=== PATIENT | male | born 1960 | race Caucasian/White ===

== ENCOUNTER 2022-05-15 15:59 | Inpatient (IN) | payer MEDICAID, MEDICARE ==
[~2022-05-15] VITALS: Ht 167.6 cm; Wt 102.1 kg
[2022-05-15] MEDS: NACL 0.9% 1,000 ML IV SCH ×2 (07:00→20:33)
[~2022-05-15 15:59] MED LIST: LANTUS SUBQ; LISI-487 PO
[2022-05-15 16:09] VITALS: BP 134/84
--- NOTE | 2022-05-15 16:09 | NUR ---
62 y/o male biba, homeless, pt was found on street corner with c/o gen weakness, high glucose, non productive cough and full body pain for 3 days. amr on scene started iv 16g on left arm with 1L of fluids for their accucheck reading higher than 600+. pt accucheck in triage was HIGH, ermd made aware. pmh: dm2 allergy: codeine med: non compliant
[2022-05-15] MEDS ORDERED: NACL 0.9% 2,000 ML IV ONE (16:20)
[2022-05-15 16:40] LABS: BASOPHILS # (AUTO) 0.1 K/uL (0.00-0.22); BASOPHILS % (AUTO) 0.6 % (0.0-2.0); EOSINOPHILS % (AUTO) 0.2 % (0.0-4.0); HEMATOCRIT 44.6 % (36-52); HEMOGLOBIN 14.8 g/dL (12.0-18.0); LYMPHOCYTES # (AUTO) 1.3 K/uL (2.0-11.5); LYMPHOCYTES % (AUTO) 11.9 % (20.5-51.1); MEAN CORPUSCULAR HEMOGLOBIN 29 pg (27-31); MEAN CORPUSCULAR HGB CONC 33 g/dL (33-37); MEAN CORPUSCULAR VOLUME 88.8 fL (80-94); MONOCYTES # (AUTO) 0.9 K/uL (0.8-1.0); MONOCYTES % (AUTO) 8.4 % (1.7-9.3); NEUTROPHILS # (AUTO) 8.8 K/uL (1.8-7.7); NEUTROPHILS % (AUTO) 78.9 % (42.2-75.2); PLATELET COUNT (AUTO) 169 K/uL (140-450); RED BLOOD CELL COUNT(AUTO) 5.03 MIL/uL (4.20-6.10); RED CELL DISTRIBUTION WIDTH 13.7 % (11.6-13.7); WHITE BLOOD COUNT (AUTO) 11.1 K/uL (4.8-10.8)
[2022-05-15 16:56] LABS: ALBUMIN 3.3 g/dL (3.4-5.0); ANION GAP 16.4 (8-16); ASPARTATE AMINOTRANSFERASE 20 U/L (15-37); CARBON DIOXIDE 21.6 mmol/L (21-32); CHLORIDE 97 mmol/L (98-107); CREATININE 2.1 mg/dL (0.6-1.3); GFR ARICAN-AMERICAN 41 mL/min (>90); SODIUM SERUM 131 mmol/L (136-145); TOTAL BILIRUBIN 0.8 mg/dL (0.0-1.0); UREA NITROGEN, BLOOD 23 mg/dL (7-18)
[2022-05-15 16:58] LABS: GLUCOSE 671 mg/dL (74-106)
[2022-05-15] MEDS ORDERED: POTASSIUM CHLORIDE 10 MEQ TABER PO ONE (17:10)
[2022-05-15] MEDS ORDERED: INSULIN REGULAR, HUMAN 100 UNIT in NACL 0.9% 100 ML IV ONE ×2 (17:10)
--- NOTE | 2022-05-15 19:30 | NUR ---
RECEIVED AWAKE AND MOANING WITH C/O CRAMP IN LEFT CALF. INSULIN GTT AT 9U/HR
--- NOTE | 2022-05-15 20:29 | NUR ---
ES SWAB OBTAINED AND TAKEN TO LAB
[2022-05-15] MEDS ORDERED: DOCUSATE SODIUM 100 MG GELCAP PO PRN (21:45)
[2022-05-15] MEDS ORDERED: INSULIN REGULAR, HUMAN 100 UNIT/ML VIAL IVP SCH (21:45)
[2022-05-15] MEDS ORDERED: guaiFENesin DM 200/20 MG-10 ML 10 ML UDC PO PRN (21:45)
[2022-05-15] MEDS ORDERED: ONDANSETRON 4 MG/2 ML VIAL IM/IVP PRN (21:45)
[2022-05-15] MEDS ORDERED: DEXTROSE 50% 50 ML SYR IVP PRN (21:45)
[2022-05-15] MEDS ORDERED: HYDROcodone/APAP 7.5/325 MG 1 TAB PO PRN (21:45)
[2022-05-15] MEDS ORDERED: ZOLPIDEM 5 MG TAB PO PRN (21:45)
[2022-05-15] MEDS ORDERED: ACETAMINOPHEN 325 MG TAB PO PRN (21:45)
[2022-05-15] MEDS ORDERED: BLOOD GLUCOSE MONITORING 1 DEV DEV FS SCH (21:45)
[2022-05-15] MEDS ORDERED: POTASSIUM CHLORIDE 40 MEQ, LIDOCAINE MPF 1% 25 MG in NACL 0.9% 250 ML IV PRN ×6 (21:45)
[2022-05-15] MEDS ORDERED: POTASSIUM CHLORIDE 10 MEQ TABER PO PRN (21:45)
[2022-05-15 22:00] VITALS: BP 128/73
--- NOTE | 2022-05-15 22:00 | NUR ---
RECEIVED PT. FROM ER AND REPORT GIVEN BY [facility] TAYLOR. PT. AWAKE, ALERT AND ORIENTED. ON NASAL CANULA AT 2L AND O2 SAT 97%. IV SITE 18G, INFUSING INSULIN DRIP 9 UNITS/HR. PER PROTOCOL I CHANGED THE INSULIN DRIP TO 0.1 U/KG/HR. DID INITIAL ASSESSMENT. SINUS RHYTHM ON MONITOR. BLOOD SUGAR CHECK EVERY HOUR. EYES PERRLA. LUNG SOUNDS CLEAR. ABDOMEN SOFT AND NON TENDER. PT. NPO EXCEPT MEDS. PT. ASKED FOR FOOD AND WHEN EXPLAINED THAT HE CAN'T HAVE ANY FOOD BY MOUTH AT THIS TIME, HE UNDERSTOOD. HE REPOSITIONED HIMSELF TO THE BED. BEDLOCK AND PLACED IN THE LOWEST HEIGHT. PT. DENIES ANY PAIN. WILL CONT. TO MONITOR.
--- NOTE | 2022-05-15 22:00 | NUR ---
TO ICU 3, BEDSIDE REPORT GIVEN
[2022-05-15 22:33] LABS: CHOL/HDL RATIO 3.7 (1-4.5); FREE T4 (FREE THYROXINE) 1.21 ng/dL (0.76-1.46); MAGNESIUM 1.9 mg/dL (1.8-2.4); PHOSPHORUS 4.4 mg/dL (2.5-4.9); THYROID STIMULATING HORMONE 0.37 uIU/mL (0.34-3.74)
[2022-05-15] MEDS: DEXT 5% / NACL 0.45% 1,000 ML IV SCH (22:40)
[2022-05-15] MEDS: BLOOD GLUCOSE MONITORING 1 DEV DEV FS SCH (23:17)
[2022-05-15 23:29] LABS: PROTHROMBIN TIME 10.3 secs (10.8-13.4)
[2022-05-15] MEDS: INSULIN REGULAR, HUMAN 100 UNIT in NACL 0.9% 100 ML IV SCH ×2 (23:31)
[2022-05-16] VITALS (11 sets, daily range): BP systolic 100–140; BP diastolic 45–115
--- NOTE | 2022-05-16 00:14 | NUR ---
LAB AT THE BEDSIDE FOR BMP, MG AND PHOS.
[2022-05-16] MEDS: BLOOD GLUCOSE MONITORING 1 DEV DEV FS SCH ×12 (00:29→21:38)
[2022-05-16] MEDS: INSULIN REGULAR, HUMAN 100 UNIT in NACL 0.9% 100 ML IV SCH ×14 (00:31→06:23)
[2022-05-16 00:35] LABS: ANION GAP 11.1 (8-16); CARBON DIOXIDE 27.8 mmol/L (21-32); CREATININE 1.3 mg/dL (0.6-1.3); POTASSIUM 3.9 mmol/L (3.5-5.1)
[2022-05-16 00:40] LABS: MAGNESIUM 1.9 mg/dL (1.8-2.4); PHOSPHORUS 3.3 mg/dL (2.5-4.9)
[2022-05-16] MEDS ORDERED: KCL 20 MEQ/WATER INJ PREMIX 200 ML IV PRN (01:40)
[2022-05-16] MEDS: DEXT 5% / NACL 0.45% 1,000 ML IV SCH (03:27)
[2022-05-16 04:35] LABS: ANION GAP 11.6 (8-16); CARBON DIOXIDE 25.8 mmol/L (21-32); CREATININE 1.3 mg/dL (0.6-1.3); POTASSIUM 3.4 mmol/L (3.5-5.1)
[2022-05-16 04:38] LABS: MAGNESIUM 1.7 mg/dL (1.8-2.4); PHOSPHORUS 3.5 mg/dL (2.5-4.9)
--- NOTE | 2022-05-16 05:39 | NUR ---
TEXT DR. PITTS TO REPORT ANION GAP, CONSECUTIVE RESULT 11.1 AND 11.6. MG 1.7 AND PHOS 3.5. LATEST BLOOD SUGAR RESULT 105. PT. IS ON INSULIN DRIP 0.05 U/KG/HR AND D5 1/2NS AT 250 ML/HR. WILL WAIT FOR HIS CALL.
--- NOTE | 2022-05-16 07:00 | NUR ---
STILL AWAITING RESPONSE OR RETURNED CALL FROM DR. PITTS. LATEST BLOOD SUGAR IS 138.
--- NOTE | 2022-05-16 07:10 | NUR ---
ENDORSED TO AM SHIFT CLEVELAND RIVERA FOR CONTINUITY OF CARE.
--- NOTE | 2022-05-16 07:34 | NUR ---
RECEIVED REPORT FROM BUSINESS SUPPORT ASSISTANT RN HARSH.
--- NOTE | 2022-05-16 08:15 | NUR ---
DR RAMIRO BRYANT AT BEDSIDE. ORDERED TO DC INSULIN DRIP, 20U LANTUS NOW, CHANGE ACCUCHECK TO ACHS WITH SLIDING SCALE, AND DC FLUIDS. RECEIVED TELE TRANSFER ORDERS.
[2022-05-16] MEDS: PANTOPRAZOLE 40 MG TABEC PO SCH (08:25)
[2022-05-16 08:35] LABS: BASOPHILS % (AUTO) 0.5 % (0.0-2.0); EOSINOPHILS # (AUTO) 0.1 K/uL (0-0.4); EOSINOPHILS % (AUTO) 1.6 % (0.0-4.0); HEMATOCRIT 41.4 % (36-52); HEMOGLOBIN 13.6 g/dL (12.0-18.0); LYMPHOCYTES # (AUTO) 1.8 K/uL (2.0-11.5); LYMPHOCYTES % (AUTO) 21.5 % (20.5-51.1); MEAN CORPUSCULAR HEMOGLOBIN 29 pg (27-31); MEAN CORPUSCULAR HGB CONC 33 g/dL (33-37); MEAN CORPUSCULAR VOLUME 88.8 fL (80-94); MONOCYTES # (AUTO) 0.6 K/uL (0.8-1.0); MONOCYTES % (AUTO) 6.6 % (1.7-9.3); NEUTROPHILS # (AUTO) 5.9 K/uL (1.8-7.7); NEUTROPHILS % (AUTO) 69.8 % (42.2-75.2); PLATELET COUNT (AUTO) 145 K/uL (140-450); RED BLOOD CELL COUNT(AUTO) 4.66 MIL/uL (4.20-6.10); RED CELL DISTRIBUTION WIDTH 13.9 % (11.6-13.7); WHITE BLOOD COUNT (AUTO) 8.5 K/uL (4.8-10.8)
[2022-05-16 08:45] LABS: MAGNESIUM 1.8 mg/dL (1.8-2.4); PHOSPHORUS 2.9 mg/dL (2.5-4.9)
[2022-05-16] MEDS ORDERED: DEXTROSE 50% 50 ML SYR IVP PRN (08:45)
[2022-05-16] MEDS ORDERED: INSULIN LANTUS 100 UNITS/ML 10 ML VIAL SUBQ SCH ×2 (09:00→21:00)
[2022-05-16] MEDS ORDERED: lisinopriL 20 MG TAB PO SCH (09:00)
[2022-05-16 09:04] LABS: ANION GAP 14.1 (8-16); CARBON DIOXIDE 23.7 mmol/L (21-32); CREATININE 1.5 mg/dL (0.6-1.3); POTASSIUM 3.8 mmol/L (3.5-5.1)
--- NOTE | 2022-05-16 09:15 | NUR ---
PATIENT HAS BEEN SCREENED AND CATEGORIZED HIGH NUTRITION RISK. PATIENT WILL BE SEEN WITHIN 1-[address] OF [address]ION. [address]
--- NOTE | 2022-05-16 09:29 | NUR ---
PATIENT A&O X4 AND ABLE TO MAKE NEEDS KNOWN. LUNGS CLEAR TO AUSCULTATION. 02 2L VIA NASAL CANULA. ACTIVE BOWEL SOUNDS, ON CCHO DIET.PATIENT IS CONTINENT BOWEL AND BLADDER. 1 MEDIUM BM SO FAR THIS SHIFT. PATIENT ON SINUS RHYTHM. [address] RUBIO HAS DISCONTINUED DRIPS AND FLUIDS. SKIN IS INTACT. PRN K DUR GIVEN FOR POTASSIUM LEVEL AT 3.4.
--- NOTE | 2022-05-16 11:33 | NUR ---
DC PLANN[age] YRS OLD MALE PATIENT WAS ADMITTED FROM HOME WITH A DX OF DKA. PATIENT HAS A HX OF HTN, CVA AND DM. BLOOD GLUCOSE LEVEL ON ADMISSION 643, AG 16.4 CXR SHOWED LOW LUNG VOLUME. RAPID COVID TEST NEGATIVE. ADMITTED IN ICU FOR INSULIN DRIP. CONSULTED WITH PULMO AND NEPHRO. DC PLAN TO GO HOME WHEN STABLE. CM TO FOLLOW.
[2022-05-16] MEDS: INSULIN LISPRO SLIDING SCALE 100 UNITS/ML VIAL SUBQ PRN ×3 (11:47→21:34)
--- NOTE | 2022-05-16 12:12 | NUR ---
DR. HORN AT BEDSIDE. MD IS OK FOR PATIENT TO TRANSFER TO TELE.
--- NOTE | 2022-05-16 13:00 | NUR ---
SEEN AND EXAMINED BY DR. PAYNE. ORDERS TO BLADDER SCAN AND INSERT RIOS CATHETER IF RESIDUAL IS >200ML.
[2022-05-16 13:13] LABS: ANION GAP 10.4 (8-16); CARBON DIOXIDE 26.7 mmol/L (21-32); POTASSIUM 4.1 mmol/L (3.5-5.1)
[2022-05-16 13:20] LABS: APPEARANCE,URINE CLEAR (CLEAR); BILIRUBIN,URINE NEGATIVE (NEGATIVE); BLOOD, URINE TRACE-I (NEGATIVE); COLOR,URINE YELLOW (YELLOW); LEUKOCYTE ESTERASE ,URINE NEGATIVE (NEGATIVE); NITRITE, URINE NEGATIVE (NEGATIVE); UGLUCOSE 2+ (NEGATIVE)
--- NOTE | 2022-05-16 13:20 | NUR ---
BLADDER SCAN SHOWED RESIDUAL OF 182 ML. NO INDICATION FOR RIOS INSERTION.
[2022-05-16 13:35] LABS: BARBITURATE, URINE NEGATIVE ng/ml (NEG <=200); BENZODIAZEPINE, URINE NEGATIVE ng/mL (NEG <=200); CANNABINOID, URINE NEGATIVE ng/mL (NEG <=50); COCAINE, URINE NEGATIVE ng/mL (NEG <=300); OPIATE, URINE NEGATIVE ng/mL (NEG <=2000); PHENCYCLIDINE SCREEN,URINE NEGATIVE ng/mL (NEG <=25)
[2022-05-16 13:37] LABS: WBC,URINE 0-5 /HPF (0-5)
[2022-05-16 14:13] LABS: MAGNESIUM 1.6 mg/dL (1.8-2.4); PHOSPHORUS 2.6 mg/dL (2.5-4.9)
--- NOTE | 2022-05-16 14:30 | NUR ---
CHANGED LINENS AND GOWN. PATIENT RESTING COMFORTABLY IN BED. RESPIRATIONS EVEN AND UNLABORED.
[2022-05-16 16:26] LABS: CARBON DIOXIDE 23.5 mmol/L (21-32); CREATININE 1.4 mg/dL (0.6-1.3); POTASSIUM 4.5 mmol/L (3.5-5.1)
--- NOTE | 2022-05-16 16:30 | NUR ---
PT USING URINAL INDEPENDENTLY. 200ML URINE OUTPUT.
[2022-05-16 16:31] LABS: MAGNESIUM 1.6 mg/dL (1.8-2.4); PHOSPHORUS 2.6 mg/dL (2.5-4.9)
--- NOTE | 2022-05-16 19:10 | NUR ---
ENDORSED REPORT TO PHOEBE GUTHRIE FOR CONTINUITY OF CARE.
--- NOTE | 2022-05-16 19:20 | NUR ---
TRANSFERRED TO TELE ROOM 124A.
--- NOTE | 2022-05-16 19:30 | NUR ---
PT ADMITTED TO [facility] FROM ICU. PT IS AOX4, AMBULATORY, ABLE TO VERBALIZE NEEDS AND FOLLOW COMMANDS. PT IS ON ROOM AIR AND ON CCHO DIET. PT HAS SALINE LOCKED ON LEFT AC GAUGE 18. PT WAS ORIENTED TO ROOM/BED BUTTON AND CALL LIGHT. ALL SAFETY MEASURES IMPLEMENTED. BED WHEELS ON LOCKED, BED IN LOW POSITION AND IN ALARM. CALL LIGHT WITHIN REACH.
[2022-05-16 20:28] LABS: ANION GAP 11.2 (8-16); CARBON DIOXIDE 26.2 mmol/L (21-32); CREATININE 1.3 mg/dL (0.6-1.3); POTASSIUM 4.4 mmol/L (3.5-5.1)
[2022-05-16 20:33] LABS: MAGNESIUM 1.8 mg/dL (1.8-2.4); PHOSPHORUS 3.5 mg/dL (2.5-4.9)
--- NOTE | 2022-05-16 21:38 | NUR ---
SCHEDULED PRESCRIBED MEDICATION WAS GIVEN TO PT PER MD ORDER. PT TOLERATED IT WELL. ALL SAFETY MEASURES IMPLEMENTED. BED WHEELS ON LOCKED, BED IN LOW POSITION AND IN ALARM. CALL LIGHT WITHIN REACH.
--- NOTE | 2022-05-16 23:30 | NUR ---
PT WAS GIVEN CRACKERS PER PT REQUEST. ALL SAFETY MEASURES IMPLEMENTED. BED WHEELS ON LOCKED, BED IN LOW POSITION AND IN ALARM. CALL LIGHT WITHIN REACH.
[2022-05-17] VITALS: BP 109/66
[2022-05-17 00:44] LABS: ANION GAP 10.8 (8-16); CARBON DIOXIDE 25.5 mmol/L (21-32); CREATININE 1.3 mg/dL (0.6-1.3); POTASSIUM 4.3 mmol/L (3.5-5.1)
[2022-05-17 00:48] LABS: MAGNESIUM 1.8 mg/dL (1.8-2.4); PHOSPHORUS 2.9 mg/dL (2.5-4.9)
--- NOTE | 2022-05-17 01:00 | NUR ---
PT IS ON SLEEP. RESPIRATION ARE EVEN AND UNLABORED NOTED. NO S/S OF RESPIRATORY DISTRESS NOTED. ALL SAFETY MEASURES IMPLEMENTED. BED WHEELS ON LOCKED. BED IN LOW POSITION. CALL LIGHT WITHIN REACH.
[2022-05-17 04:00] VITALS: BP 110/71
[2022-05-17 04:20] LABS: MAGNESIUM 1.7 mg/dL (1.8-2.4); PHOSPHORUS 3.2 mg/dL (2.5-4.9)
[2022-05-17 04:28] LABS: ANION GAP 9.8 (8-16); CARBON DIOXIDE 26.9 mmol/L (21-32); CREATININE 1.2 mg/dL (0.6-1.3); POTASSIUM 4.7 mmol/L (3.5-5.1)
--- NOTE | 2022-05-17 04:30 | NUR ---
PT WAS GIVEN CRACKERS AND WATER PER PT REQUESTED. ALL SAFETY MEASURES IMPLEMENTED. BED WHEELS ON LOCKED. BED IN LOW POSITION. CALL LIGHT WITHIN REACH.
[2022-05-17 06:16] LABS: T4 (THYROXINE) 9.4 ug/dL (4.5-12.0)
--- NOTE | 2022-05-17 06:30 | NUR ---
CHECKED THE PT. HE'S ON SLEEP. RESPIRATION ARE EVEN AND UNLABORED NOTED. NO S/S OF RESPIRATORY DISTRESS NOTED. ALL SAFETY MEASURES IMPLEMENTED. BED WHEELS ON LOCKED. BED IN LOW POSITION. CALL LIGHT WITHIN REACH.
--- NOTE | 2022-05-17 07:19 | NUR ---
PT IS STABLE. ENDORSED PT TO MORNING SHIFT NURSE FOR CONTINUITY OF CARE.
--- NOTE | 2022-05-17 07:20 | NUR ---
RECEIVED REPORT FROM EVAPORATIVE COOLER INSTALLER NURSE FOR CONTINUITY OF CARE. PT SLEEPING, EASILY AROUSABLE BY VERBAL STIMULI. RESPIRATIONS EVEN AND UNLABORED ON RA. PT ON TELE MONITOR. NO DISTRESS NOTED. SKIN IS INTACT AND WARM TO TOUCH. IV SITE AT LAC 18G, SL. CALL LIGHT WITHIN REACH. SAFETY PRECAUTIONS IN PLACE. WILL CONTINUE TO MONITOR.
[2022-05-17] MEDS ORDERED: INSULIN LANTUS 100 UNITS/ML 10 ML VIAL SUBQ SCH (07:50)
[2022-05-17 08:00] VITALS: BP 128/78
[2022-05-17] MEDS: PANTOPRAZOLE 40 MG TABEC PO SCH (08:37)
--- NOTE | 2022-05-17 08:40 | NUR ---
ADMINISTERED SCHEDULED MORNING MEDS. PT TEACHING ABOUT MEDS GIVEN. PT VERBALIZED UNDERSTANDING. CALL LIGHT WITHIN REACH. SAFETY PRECAUTIONS IN PLACE. WILL CONTINUE TO MONITOR.
[2022-05-17] MEDS ORDERED: MAGNESIUM OXIDE 400 MG TAB PO SCH (09:20)
--- NOTE | 2022-05-17 09:41 | NUR ---
MG OX ADMINISTERED FOR MG 1.7. PT TEACHING GIVEN. PT VERBALIZED UNDERSTANDING. WILL CONTINUE TO MONITOR.
[2022-05-17 10:12] LABS: MAGNESIUM 1.6 mg/dL (1.8-2.4); PHOSPHORUS 2.2 mg/dL (2.5-4.9)
[2022-05-17 10:16] LABS: ANION GAP 10.4 (8-16); CARBON DIOXIDE 26.7 mmol/L (21-32); CREATININE 1.2 mg/dL (0.6-1.3); POTASSIUM 4.1 mmol/L (3.5-5.1)
--- NOTE | 2022-05-17 10:37 | NUR ---
05/17/22 RD INITIAL ASSESSMENT COMPLETED PLEASE REFER TO NUTRITION ASSESSMENT UNDER CARE ACTIVITY FOR ESTIMATED NUTRITIONAL NEEDS. 1. CONTINUE [id number] DIET TOLERATED 2. PROVIDED NUTRITION EDUCATION FOR DIABETES WITH HANDOUTS 3. RD TO FOLLOW-UP 3-5 DAYS, MODERATE RISK REVIEWED BY HENRY PINON RD
[2022-05-17] MEDS: BLOOD GLUCOSE MONITORING 1 DEV DEV FS SCH (11:59)
[2022-05-17 12:00] VITALS: BP 132/84
[2022-05-17] MEDS ORDERED: INSULIN LISPRO 100 UNITS/ML VIAL SUBQ SCH (12:15)
[2022-05-17] MEDS: INSULIN LISPRO SLIDING SCALE 100 UNITS/ML VIAL SUBQ PRN (12:16)
--- NOTE | 2022-05-17 12:21 | NUR ---
BLOOD GLUCOSE CHECK DONE. BS 404. ORDERED 20U OF HUMALOG. ORDER CARRIED OUT. WILL CONTINUE TO MONITOR.
[2022-05-17 12:34] VITALS: BP 132/84
--- NOTE | 2022-05-17 13:25 | NUR ---
DID ROUNDS: PT IN BED, RESTING. NO DISTRESS NOTED. DENIES PAIN. CALL LIGHT WITHIN REACH. SAFETY PRECAUTIONS IN PLACE. WILL CONTINUE TO MONITOR.
[2022-05-17 13:37] LABS: ANION GAP 9.9 (8-16); CARBON DIOXIDE 26.3 mmol/L (21-32); CREATININE 1.3 mg/dL (0.6-1.3); POTASSIUM 4.2 mmol/L (3.5-5.1)
[2022-05-17 13:39] LABS: MAGNESIUM 1.6 mg/dL (1.8-2.4); PHOSPHORUS 2.9 mg/dL (2.5-4.9)
--- NOTE | 2022-05-17 13:50 | NUR ---
P.T. NOTES P.T. EVAL COMPLETED; REFER TO EVAL FOR DETAILS.
--- NOTE | 2022-05-17 15:20 | NUR ---
DISCHARGE PAPER DISCUSSED WITH THE PT. PT VERBALIZED UNDERSTANDING. PT D/C HOME. PT WHEELED OUT BY THE NURSE TO FRONT LOBBY VIA WHEELCHAIR. REMOVED IV CATHETER INTACT. REMOVED ID WRIST BAND. ALL BELONGINGS TAKEN UPON D/C. PT IS STABLE.
== END 2022-05-17 15:19 | disposition home or self-care (01) | DRG 420 ==
LOC: MED 15:59 → MMU 19:10 → MIC 22:00 → MTU 05-16 19:20
PROVIDERS: ADMIT Family Medicine; ATTEND Family Medicine
DX: E11.10 Type 2 diabetes mellitus with ketoacidosis without coma (principal); N17.0 Acute kidney failure with tubular necrosis; E44.0 Moderate protein-calorie malnutrition; E11.22 Type 2 diabetes mellitus with diabetic chronic kidney disease; E87.6 Hypokalemia; N18.9 Chronic kidney disease, unspecified; E87.1 Hypo-osmolality and hyponatremia; Z20.822 Contact with and (suspected) exposure to COVID-19; E86.1 Hypovolemia; I12.9 Hypertensive chronic kidney disease with stage 1 through stage 4 chronic kidney disease, or unspecified chronic kidney disease; Z88.5 Allergy status to narcotic agent; Z79.899 Other long term (current) drug therapy; Z86.73 Personal history of transient ischemic attack (TIA), and cerebral infarction without residual deficits; Z79.4 Long term (current) use of insulin; Z91.14 Patient's other noncompliance with medication regimen; Z68.36 Body mass index [BMI] 36.0-36.9, adult
CPT/HCPCS: 36415; 36600; 71045; 80048; 80053; 80305; 81001; 82009; 82150; 82803; 82948; 83036; 83690; 83735; 83880; 84100; 84436; 84439; 84443; 84479; 84484; 85025; 85610; 85730; 87081; 93005; 96361; 96374; 97163-GP; 99291; J1815; J7030; Q0092

== ENCOUNTER 2022-11-10 22:57 | Emergency (ER) | payer MEDICAID, OTHER ==
[~2022-11-10] VITALS: Ht 167.6 cm; Wt 100.2 kg
[2022-11-10 23:00] VITALS: BP 160/84
--- NOTE | 2022-11-11 01:46 | NUR ---
PT TO CHAIR
--- NOTE | 2022-11-11 01:50 | NUR ---
seen and examined by JOVITA
[2022-11-11] MEDS ORDERED: KETOROLAC 30 MG/ML VIAL IM ONE (02:05)
--- NOTE | 2022-11-11 02:30 | NUR ---
Provided sandwiches and juice as request.
[2022-11-11] MEDS ORDERED: NAPR-54 PO (02:31)
[2022-11-11 02:43] VITALS: BP 154/84
== END 2022-11-11 02:43 | disposition home or self-care (01) ==
LOC: MED 22:57
DX: M79.10 Myalgia, unspecified site (principal); I10 Essential (primary) hypertension; E11.9 Type 2 diabetes mellitus without complications; Z79.4 Long term (current) use of insulin; Z79.899 Other long term (current) drug therapy
CPT/HCPCS: 96372; 99283; J1885

== ENCOUNTER 2022-11-11 18:38 | Emergency (ER) | payer OTHER ==
[~2022-11-11] VITALS: Ht 167.6 cm; Wt 100.2 kg
[~2022-11-11 18:38] MED LIST changes: +NAPR-54 PO
[2022-11-11 18:42] VITALS: BP 166/100
--- NOTE | 2022-11-11 18:45 | NUR ---
PT TO [facility]
--- NOTE | 2022-11-11 18:54 | NUR ---
JOVITA JAIMES ASSESSING PT
[2022-11-11] MEDS ORDERED: ACETAMINOPHEN 325 MG TAB PO ONE (19:00)
--- NOTE | 2022-11-11 20:25 | NUR ---
PT CLEARED FOR D/C BY . PT ASKED FOR A RIDE TO [facility] SUPERVISIOR CONTACTED FOR UBER.
[2022-11-11 20:42] VITALS: BP 136/74
--- NOTE | 2022-11-11 20:42 | NUR ---
Patient discharged with v/s stable. Written and verbal after care instructions given and explained. Patient verbalized understanding. Ambulatory with to car. All questions addressed prior to discharge. Advised to follow up with PMD. TAMIA ARRANGED TO TAKE PT TO [facility].
== END 2022-11-11 20:42 | disposition home or self-care (01) ==
LOC: MED 18:38
DX: F20.9 Schizophrenia, unspecified (principal); R44.0 Auditory hallucinations; M79.604 Pain in right leg; M79.605 Pain in left leg; E11.9 Type 2 diabetes mellitus without complications; I10 Essential (primary) hypertension; Z88.5 Allergy status to narcotic agent; Z79.4 Long term (current) use of insulin; Z79.899 Other long term (current) drug therapy
CPT/HCPCS: 99282; 99283